=== PATIENT | male | born 1975 ===

== ENCOUNTER 2024-10-08 13:41 | Emergency (ER) | payer OTHER ==
[~2024-10-08] VITALS: Ht 177.8 cm; Wt 90.0 kg
[2024-10-08 14:10] VITALS: BP 140/85; PULSE 89; RESP 18; TEMP 98; O2SAT 98
== END 2024-10-08 14:36 | disposition left against medical advice (07) ==
LOC: EMS 13:45
DX: F13.10 Sedative, hypnotic or anxiolytic abuse, uncomplicated (principal); R07.89 Other chest pain; R73.9 Hyperglycemia, unspecified
CPT/HCPCS: 82962; 93005; 99282; 99283